=== PATIENT | female | born 1995 | race Two or more races ===

== ENCOUNTER 2024-08-30 05:41 | Inpatient (IN) | payer MEDICAID, OTHER ==
[~2024-08-30] VITALS: Ht 157.5 cm; Wt 71.4 kg
--- NOTE | 2024-08-30 06:45 | ED.PDOC ---
GI ASSESSMENT HPI Comments 29Y F with PMHx cholecystectomy presents to ED for chief complaint abd pain with nausea, vomiting, and diarrhea x4hrs. Abd pain is located at epigastric and RUQ region. Pt was seen by Adam 2 weeks ago and was dx with colitis. Pt was told she may have Crohn's disease. LMP was on 08/04/2024. No known allergies. Chief Complaint: Nausea/Vomiting Time Seen by MD: 06:24 Reviewed Notes: Medications, Allergies Allergies: Coded Allergies: NO KNOWN ALLERGIES (Unverified , 08/30/24) Information Source: Patient Mode of Arrival: Ambulatory Timing: Hours Duration: Since onset Quality: Sharp Vomitus: Watery Stool: Watery Severity: Moderate Recent: None Recent Hx of: None Pain Location: Epigastric, RUQ Modifying Factors: Nothing Associated sign and symptoms: Nausea, Vomiting, Diarrhea, Abdominal Pain Past Medical History PAST MEDICAL HISTORY: Denies Surgical History: Cholecystectomy ONLINE BANKING SPECIALIST History: No Pertinent ONLINE BANKING SPECIALIST History Family History Family History: Unknown Social History Smoker: Unknown Alcohol: Unknown Drugs: Unknown Lives In: Home Constitutional: denies: chills, diaphoresis, fatigue, fever, malaise, sweats, weakness, others EENTM: denies: blurred vision, double vision, ear bleeding, ear discharge, ear drainage, ear pain, ear ringing, eye pain, eye redness, hearing loss, mouth pain, mouth swelling, nasal discharge, nose bleeding, nose congestion, nose pain, photophobia, tearing, throat pain, throat swelling, voice changes, others Respiratory: denies: cough, hemoptysis, orthopnea, SOB at rest, shortness of breath, SOB with excertion, stridor, wheezing, others Cardiovascular: denies: chest pain, dizzy spells, diaphoresis, Dyspnea on exertion, edema, irregular heart beat, left arm pain, lightheadedness, palpitations, PND, syncope, others Gastrointestinal: reports: abdominal pain, diarrhea, nausea, vomiting; denies: abdomen distended, blood streaked bowels, constipated, dysphagia, difficulty swallowing, hematemesis, melena, poor appetite, poor fluid intake, rectal bl eeding, rectal pain, others Genitourinary: denies: abnormal vagina bleeding, burning, dyspareunia, dysuria, flank pain, frequency, hematuria, incontinence, pain, , vagina discharge, urgency, others Neurological: denies: dizziness, fainting, headache, left sided numbness, left sided weakness, numbness, paresthesia, pre-existing deficit, right sided numbness, right sided weakness, seizure, speech problems, tingling, tremors, weakness, others Musculoskeletal: denies: back pain, gout, joint pain, joint swelling, muscle pain, muscle stiffness, neck pain, others Integumetry: denies: bruises, change in color, change in hair/nails, dryness, laceration, lesions, lumps, rash, wounds, others Allergic/Immunocompromised: denies: Difficulty Healing, Frequent Infections, Hives, Itching, others Hematologic/Lymphatic: denies: anemia, blood clots, easy bleeding, easy bruising, swollen glands, others Endocrine: denies: excessive hunger, excessive sweating, excessive thirst, excessive urination, flushing, intolerance to cold, intolerance to heat, unexplained weight gain, unexplained weight loss, others Psychiatric: denies: anxiety, bipolar disorder, depression, hopeless, panic disorder, schizophrenia, sleepless, suicidal, others All Other Systems: Reviewed and Negative Physical Exam General Appearance: Moderate Distress HEENT: Normal ENT Inspection, Pharynx Normal, TMs Normal Neck: Full Range of Motion, Non-Tender, Normal, Normal Inspection Respiratory: Chest Non-Tender, Lungs Clear, No Accessory Muscle Use, No Respiratory Distress, Normal Breath Sounds Cardiovascular: No Edema, No JVD, No Murmur, No Gallop, Normal Peripheral Pulses, Regular Rate/Rhythm Breast Exam: Deferred Gastrointestinal: No Organomegaly, Non Tender, No Pulsatile Mass, Normal Bowel Sounds, Soft Genitalia: Deferred Pelvic: Deferred Rectal: Deferred Extremities: No calf tenderness, Normal capillary refill, Normal inspection, Normal range of motion, Non-tender, No pedal edema Musculoskeletal : Apperance: Normal Neurologic: Alert, fuse assembler II-XII nml as Tested, No Motor Deficits, Normal Affect, Normal Mood, No Sensory Deficits Cerebellar Function: Normal Reflexes: Normal Skin: Dry, Normal Color, Warm Lymphatic: No Adenopathy Was a procedure done? Was a procedure done?: No GI differential Dx Differential Diagnosis: Cholecystitis, Diverticular disease, Gastritis/PUD, Electrolyte Imbalance X-Ray, Labs, Meds, VS Vital Signs Date Time Temp Pulse Resp B/P (MAP) Pulse Ox O2 Delivery O2 Flow Rate FiO2 08/30/24 13:32 98.4 76 16 121/49 (73) 98 98.4 08/30/24 08:15 75 16 08/30/24 08:15 98.0 75 16 132/85 (101) 99 98.0 08/30/24 05:52 98.4 86 16 148/97 (114) 98 Lab Test 08/30/24 08:39 08/30/24 05:56 Range/Units White Blood Count 9.5 4.4-10.8 10^3/uL Red Blood Count 4.95 4.0-5.20 10^6/uL Hemoglobin 13.1 12.2-16.2 g/dL Hematocrit 39.6 36.0-46.0 % Mean Corpuscular Volume 80.0 80.0-100.0 fL Mean Corpuscular Hemoglobin 26.4 L 28.0-32.0 pg Mean Corpuscular Hemoglobin Concent 33.0 32.0-36.0 g/dL Red Cell Distribution Width 16.1 H 11.8-14.3 % Platelet Count 344 140-450 10^3/uL Mean Platelet Volume 8.5 6.9-10.8 fL Neutrophils (%) (Auto) 71.7 37.0-80.0 % Lymphocytes (%) (Auto) 22.2 10.0-50.0 % Monocytes (%) (Auto) 5.0 0.0-12.0 % Eosinophils (%) (Auto) 0.5 0.0-7.0 % Basophils (%) (Auto) 0.6 0.0-2.0 % Neutrophils # (Auto) 6.8 1.6-8.6 10 ^3/uL Lymphocytes # (Auto) 2.1 0.4-5.4 10 ^3/uL Monocytes # (Auto) 0.5 0-1.3 10 ^3/uL Eosinophils # (Auto) 0 0-0.8 10 ^3/uL Basophils # (Auto) 0.1 0-0.2 10 ^3/uL Nucleated Red Blood Cells 0.1 % Sodium Level 143 136-145 mmol/L Potassium Level 3.6 3.5-5.1 mmol/L Chloride Level 110 H 98-107 mmol/L Carbon Dioxide Level 24 20-31 mmol/L Anion Gap 9 5-15 Blood Urea Nitrogen 7 L 9-23 mg/dL Creatinine 0.83 0.550-1.02 mg/dL Glomerular Filtration Rate Calc 98 >90 mL/min BUN/Creatinine Ratio 8.4 L 10.0-20.0 Serum Glucose 96 74-106 mg/dL Calcium Level 9.8 8.7-10.4 mg/dL Total Bilirubin 0.4 0.2-1.0 mg/dL Aspartate Amino Transferase (AST) 13 13-40 U/L Alanine Aminotransferase (ALT) 13 7-40 U/L Alkaline Phosphatase 92 46-116 U/L Total Protein 7.5 5.7-8.2 g/dL Albumin 4.9 H 3.2-4.8 g/dL Lipase 39 12-53 U/L Urine Color Dark-brown Yellow Urine Clarity Ex.turbid Clear Urine pH 6.0 5.0-9.0 Urine Specific [place] 1.028 1.001-1.035 Urine Protein 1+ H Negative Urine Ketones Trace Negative Urine Blood Negative Negative /uL Urine Nitrite Negative Negative Urine Bilirubin Negative Negative Urine Urobilinogen Normal Negative mg/dL Urine Leukocyte Esterase Negative Negative /uL Urine RBC None seen 0 - 4 /hpf Urine WBC 199 0 - 5 /hpf Urine Squamous Epithelial Cells None seen <5 /hpf Urine Amorphous Crystals Few None Seen /hpf Urine Bacteria Few H None Seen /hpf Urine Mucus Few None Seen Urine Glucose Normal Normal mg/dL Urine Test Negative Negative [facility] [id number] [place] [address] Ph: [phone] DIAGNOSTIC IMAGING Diagnostic Imaging Report : [id number] Signed PATIENT: SUSIE HARRY ACCT: [id number] UNIT: [id number] : 1995 LOC: ER ROOM / BED: / AGE / SEX: 29 / F ADM STATUS: REG ER SERVICE 0833 ORDERING PHYSICIAN: JOYA ANTHONY MD PROCEDURE(s): ABPL - CT AB PEL WO CON-NO ORAL OR IV REASON: ABDOMINAL PAIN ORDER NUMBER(s): [id number], ACCESSION NUMBER(s): [id number] EXAM: CT Abdomen and Pelvis Without Intravenous Contrast CLINICAL INDICATION: ABDOMINAL PAIN TECHNIQUE: Axial computed tomography images of the abdomen and pelvis without intravenous contrast. This CT exam was performed using one or more of the following dose reduction techniques: automated exposure control, adjustment of the mA and/or kV according to patient size, and/or use of iterative reconstruction technique. RADIATION DOSE: CTDlvol= 8 mGy, DLP= 433.19 mGy-cm COMPARISON: None FINDINGS: LUNG BASES: Unremarkable. No mass. No consolidation. ABDOMEN: LIVER: Unremarkable. GALLBLADDER AND BILE DUCTS: Gallbladder is surgically absent. No ductal dilation. PANCREAS: Unremarkable. No ductal dilation. SPLEEN: 5.7 cm splenic cyst. ADRENALS: Unremarkable. No mass. KIDNEYS AND URETERS: Unremarkable. No stones within either kidney. No hydronephrosis. STOMACH AND BOWEL: Unremarkable. No obstruction. No mucosal thickening. PELVIS: APPENDIX: Appendix is not clearly visualized. No significant fat stranding in the right lower abdominal quadrant to suggest acute inflammation. BLADDER: Unremarkable. No stones. REPRODUCTIVE: Unremarkable as visualized. ABDOMEN and PELVIS: INTRAPERITONEAL SPACE: Unremarkable. No free air. No significant fluid collection. BONES/JOINTS: No acute fracture. No dislocation. SOFT TISSUES: Unremarkable. VASCULATURE: Unremarkable. No abdominal aortic aneurysm. LYMPH NODES: Unremarkable. No enlarged lymph nodes. OTHER FINDINGS: . . IMPRESSION: 1. 5.7 cm splenic cyst. 2. No obstructive uropathy. 3. Appendix is not clearly visualized. No significant fat stranding in the right lower abdominal quadrant to suggest acute inflammation. HS:Y ATED BY: MENA MEJIA MD DICTATED DATE/TIME: 08/30/24928 SIGNED BY: MENA MEJIA MD SIGNED DATE/TIME: 08/30/24928 CC: Time of 1ST Reevaluation: 06:54 Reevaluation 1ST: Unchanged Time of 2ND Reevaluation: 13:56 Reevaluation 2ND: Unchanged Patient Education/Counseling: Diagnosis, Treatment Family Education/Counseling: No Family Present Additional Information Tests ordered and results reviewed: CBC, CMP, lipase, UA, CT abd/pelvis WO contrast Independent historians include: None. Dr. Anthony interpreted each of the tests and agrees with the result. Results and treatment discussed with the pt and medical personnel. despite of treatment and an extended time in the ER, pt remains symptomatic and cannot keep oral intake. i will admit her for intractable nausea, abdominal pain Departure 1 Departure Time of Disposition: 13:57 Impression: Primary Impression: Intractable abdominal pain Additional Impression: Intractable nausea Disposition: ADMITTED INPATIENT Condition: Good Critical Care Note Critical Care Time?: No Stability Stability form required: No I personally scribed for JOYA ANTHONY MD ([facility]) on 08/30/24 at 06:45. Electronically submitted by Mayra Ayon ([facility]). I personally scribed for JOYA ANTHONY MD ([facility]) on 08/30/24 at 09:41. Electronically submitted by Mayra Ayon ([facility]). JOYA ANTHONY MD Aug 30, 2024 06:45
[2024-08-30 08:04] LABS: Urine Amorphous Crystal FEW /hpf (None Seen); Urine Bacteria FEW /hpf (None Seen); Urine Blood Negative /uL (Negative); Urine Clarity Ex.Turbid (Clear); Urine Color Dark-Brown (Yellow); Urine Mucus FEW (None Seen); Urine Protein, UAD 1+ (Negative); Urine Specific Gravity 1.028 (1.001-1.035); Urine Urobilinogen Normal (Negative); Urine WBC 199 /hpf (0 - 5)
--- NOTE | 2024-08-30 09:31 | DVH ---
EXAM: CT Abdomen and Pelvis Without Intravenous Contrast CLINICAL INDICATION: ABDOMINAL PAIN TECHNIQUE: Axial computed tomography images of the abdomen and pelvis without intravenous contrast. This CT exam was performed using one or more of the following dose reduction techniques: automated exposure control, adjustment of the mA and/or kV according to patient size, and/or use of iterative r econstruction technique. RADIATION DOSE: CTDlvol= 8 mGy, DLP= 433.19 mGy-cm COMPARISON: None FINDINGS: LUNG BASES: Unremarkable. No mass. No consolidation. ABDOMEN: LIVER: Unremarkable. GALLBLADDER AND BILE DUCTS: Gallbladder is surgically absent. No ductal dilation. PANCREAS: Unremarkable. No ductal dilation. SPLEEN: 5.7 cm splenic cyst. ADRENALS: Unremarkable. No mass. KIDNEYS AND URETERS: Unremarkable. No stones within either kidney. No hydronephrosis. STOMACH AND BOWEL: Unremarkable. No obstruction. No mucosal thickening. PELVIS: APPENDIX: Appendix is not clearly visualized. No significant fat stranding in the right lower abdomi nal quadrant to suggest acute inflammation. BLADDER: Unremarkable. No stones. REPRODUCTIVE: Unremarkable as visualized. ABDOMEN and PELVIS: INTRAPERITONEAL SPACE: Unremarkable. No free air. No significant fluid collection. BONES/JOINTS: No acute fracture. No dislocation. SOFT TISSUES: Unremarkable. VASCULATURE: Unremarkable. No abdominal aortic aneurysm. LYMPH NODES: Unremarkable. No enlarged lymph nodes. OTHER FINDINGS: . . IMPRESSION: 1. 5.7 cm splenic cyst. 2. No obstructive uropathy. 3. Appendix is not clearly visualized. No significant fat stranding in the right lower abdominal saurav drant to suggest acute inflammation. HS:Y
[2024-08-30 09:33] LABS: Eosinophils # (auto) 0 10 ^3/uL (0-0.8); Hemoglobin 13.1 g/dL (12.2-16.2); Monocytes # (auto) 0.5 10 ^3/uL (0-1.3); Neutrophils # (auto) 6.8 10 ^3/uL (1.6-8.6); Nucleated Red Blood Cells % 0.1 %; White Blood Cell 9.5 10^3/uL (4.4-10.8)
[2024-08-30 09:35] LABS: Basophils # (auto) 0.1 10 ^3/uL (0-0.2); Basophils % (auto) 0.6 % (0.0-2.0); Eosinophils % (auto) 0.5 % (0.0-7.0); Hematocrit 39.6 % (36.0-46.0); Lymphocytes # (auto) 2.1 10 ^3/uL (0.4-5.4); Lymphocytes % (auto) 22.2 % (10.0-50.0); Mean Corpuscular Hemoglobin 26.4 pg (28.0-32.0); Neutrophils % (auto) 71.7 % (37.0-80.0); Platelet Count (auto) 344 10^3/uL (140-450); Red Blood Cells 4.95 10^6/uL (4.0-5.20); Red Cell Distribution Width 16.1 % (11.8-14.3)
[2024-08-30 09:36] LABS: Alanine Aminotransferase 13 U/L (7-40); Albumin 4.9 g/dL (3.2-4.8); Alkaline Phosphatase 92 U/L (46-116); Anion Gap 9 (5-15); Aspartate Aminotransferase 13 U/L (13-40); BUN/Creatinine Ratio 8.4 (10.0-20.0); Blood Urea Nitrogen 7 mg/dL (9-23); Calcium 9.8 mg/dL (8.7-10.4); Carbon Dioxide 24 mmol/L (20-31); Chloride 110 mmol/L (98-107); Glucose 96 mg/dL (74-106); Potassium 3.6 mmol/L (3.5-5.1); Sodium 143 mmol/L (136-145)
[2024-08-30 09:37] LABS: Bilirubin, Total 0.4 mg/dL (0.2-1.0); Total Protein 7.5 g/dL (5.7-8.2)
[2024-08-30 11:26] LABS: Lipase 39 U/L (12-53)
[2024-08-30] MEDS: SODIUM CHLORIDE 0.9% 1,000 ML IV ONE (14:09)
[2024-08-30] MEDS: ONDANSETRON HCL 4 MG/2 ML VIAL IV ONE (14:24)
[2024-08-30 14:55] VITALS: PULSE 76; RESP 16; O2SAT 98
[2024-08-30] MEDS: SODIUM CHLORIDE 0.9% 1,000 ML IV SCH (16:00)
[2024-08-30] MEDS ORDERED: LORazepam 0.5 MG TAB PO PRN (16:00)
[2024-08-30] MEDS ORDERED: TEMAZEPAM 15 MG CAP PO PRN (16:00)
[2024-08-30] MEDS: cefTRIAXone 1GM/50ML D5W 50 ML IV SCH (16:00)
[2024-08-30] MEDS ORDERED: MAALOX PLUS or MAALOX 30 ML PO PRN (16:00)
[2024-08-30] MEDS ORDERED: DOCUSATE SOD 100 MG CAP PO PRN (16:00)
[2024-08-30] MEDS ORDERED: ACETAMINOPHEN 325 MG TAB PO PRN (16:00)
--- NOTE | 2024-08-30 16:36 | DVHHP2 ---
History of Present Illness Reason for Visit: abdominal pain History of Present Illness 29 yo patient stated failed treatment patient was having pain and nausea and vomiting for days was seen in the ed and was stated that she had diverticulitis and a gi infection was treated with cipro and told to follow up if worse patient states continued symptoms and worsening pain seen in our ed recommended for admmisson for suspected failed outpatient treatment Review of Systems Constitutional: Yes: Fever, Weakness; No: Chills, Sweats, Malaise, Other Eyes: No: Pain, Vision change, Conjunctivae inflammation, Eyelid inflammation, Other, Redness ENT: No: Ear pain, Ear discharge, Nose pain, Nose discharge, Nose congestion, Mouth pain, Mouth swelling, Throat pain, Throat swelling, Other Respiratory: No: Cough, Dry, Shortness of breath, SOB with excertion, Wheezing, Hemoptysis, Pleuritic Pain, Sputum, Wheezing, Other Cardiovascular: No: Chest Pain, Palpitations, Orthopnea, Paroxysmal Noc. Dyspnea, Edema, Lt Headedness, Other Gastrointestinal: Nausea, Vomiting, Abdominal Pain; No: Diarrhea, Constipation, Melena, Hematochezia, Other Genitourinary: No Dysuria, No Frequency, No Incontinence, No Hematuria, No Retention, No Other Musculoskeletal: No: other, neck pain, shoulder pain, arm pain, back pain, hand pain, leg pain, foot pain Skin: No: Rash, Lesions, Jaundice, Bruising, Other Neurological: No: Weakness, Numbness, Incoordination, Change in speech, Confusion, Seizures, Other Allergies: Coded Allergies: NO KNOWN ALLERGIES (Unverified , 08/30/24) Medications Current Medications Medications Dose Ordered Sig/Shailesh Route Start Time Stop Time Status Last Admin Dose Admin Ceftriaxone Sodium 50 ml @ 100 mls/hr DAILY IV 08/30/24 16:00 UNV Sodium Chloride 1,000 ml @ 60 mls/hr [id number] IV 08/30/24 16:00 UNV Lorazepam 0.5 mg Q6HP PRN PO 08/30/24 16:00 UNV Al Hydrox/Mg Hydrox/Simethicone 30 ml Q6HP PRN PO 08/30/24 16:00 UNV Docusate Sodium 100 mg BIDPRN PRN PO 08/30/24 16:00 UNV Acetaminophen 650 mg Q6HP PRN PO 08/30/24 16:00 UNV Temazepam 15 mg QHSP PRN PO 08/30/24 16:00 UNV Acetaminophen/ Hydrocodone Bitart 1 tab Q4HP PRN PO 08/30/24 16:00 UNV Ondansetron HCl 4 mg Q4HP PRN IV 08/30/24 16:00 UNV Morphine Sulfate 2 mg Q4HPRN PRN IV 08/30/24 16:00 UNV Exam Vital Signs Vital Signs Date Time Temp Pulse Resp B/P (MAP) Pulse Ox O2 Delivery O2 Flow Rate FiO2 08/30/24 16:07 98.9 70 16 127/95 (106) 98 98.9 08/30/24 14:55 Room Air* 0 21 General Appearance: Alert, Oriented X3, mild distress, moderate distress HEENT: Atraumatic, PERRLA Respiratory: Clear to auscultation, Normal air movement Cardiovascular: Regular rate, Normal S1, Normal S2 Abdominal: Normal bowel sounds, Soft, No tenderness Extremities: No clubbing, No cyanosis Skin: No rashes, No breakdown Neuro: Normal gait, Normal speech Psych/Mental Status: Mental status NL, Mood NL Labs/Xrays Labs Test 08/30/24 08:39 08/30/24 05:56 Range/Units White Blood Count 9.5 4.4-10.8 10^3/uL Red Blood Count 4.95 4.0-5.20 10^6/uL Hemoglobin 13.1 12.2-16.2 g/dL Hematocrit 39.6 36.0-46.0 % Mean Corpuscular Volume 80.0 80.0-100.0 fL Mean Corpuscular Hemoglobin 26.4 L 28.0-32.0 pg Mean Corpuscular Hemoglobin Concent 33.0 32.0-36.0 g/dL Red Cell Distribution Width 16.1 H 11.8-14.3 % Platelet Count 344 140-450 10^3/uL Mean Platelet Volume 8.5 6.9-10.8 fL Neutrophils (%) (Auto) 71.7 37.0-80.0 % Lymphocytes (%) (Auto) 22.2 10.0-50.0 % Monocytes (%) (Auto) 5.0 0.0-12.0 % Eosinophils (%) (Auto) 0.5 0.0-7.0 % Basophils (%) (Auto) 0.6 0.0-2.0 % Neutrophils # (Auto) 6.8 1.6-8.6 10 ^3/uL Lymphocytes # (Auto) 2.1 0.4-5.4 10 ^3/uL Monocytes # (Auto) 0.5 0-1.3 10 ^3/uL Eosinophils # (Auto) 0 0-0.8 10 ^3/uL Basophils # (Auto) 0.1 0-0.2 10 ^3/uL Nucleated Red Blood Cells 0.1 % Sodium Level 143 136-145 mmol/L Potassium Level 3.6 3.5-5.1 mmol/L Chloride Level 110 H 98-107 mmol/L Carbon Dioxide Level 24 20-31 mmol/L Anion Gap 9 5-15 Blood Urea Nitrogen 7 L 9-23 mg/dL Creatinine 0.83 0.550-1.02 mg/dL Glomerular Filtration Rate Calc 98 >90 mL/min BUN/Creatinine Ratio 8.4 L 10.0-20.0 Serum Glucose 96 74-106 mg/dL Calcium Level 9.8 8.7-10.4 mg/dL Total Bilirubin 0.4 0.2-1.0 mg/dL Aspartate Amino Transferase (AST) 13 13-40 U/L Alanine Aminotransferase (ALT) 13 7-40 U/L Alkaline Phosphatase 92 46-116 U/L Total Protein 7.5 5.7-8.2 g/dL Albumin 4.9 H 3.2-4.8 g/dL Lipase 39 12-53 U/L Urine Color Dark-brown Yellow Urine Clarity Ex.turbid Clear Urine pH 6.0 5.0-9.0 Urine Specific [place] 1.028 1.001-1.035 Urine Protein 1+ H Negative Urine Ketones Trace Negative Urine Blood Negative Negative /uL Urine Nitrite Negative Negative Urine Bilirubin Negative Negative Urine Urobilinogen Normal Negative mg/dL Urine Leukocyte Esterase Negative Negative /uL Urine RBC None seen 0 - 4 /hpf Urine WBC 199 0 - 5 /hpf Urine Squamous Epithelial Cells None seen <5 /hpf Urine Amorphous Crystals Few None Seen /hpf Urine Bacteria Few H None Seen /hpf Urine Mucus Few None Seen Urine Glucose Normal Normal mg/dL Urine Test Negative Negative Assessment/Plan Assessment/Plan Admit Med/Surg Abdominal Pain Suspected Pain due to Acute diverticulitis with failed outpatient treatment UTI also present IV hydration Symptom management IV abx prn pain meds Plan discussed with: Patient My Orders Orders - ELAINE PILLAI MD Procedure Category Date Status Time Ceftriaxone 1gm/50ml PHA 08/30/24 In Process D5w (Rocephin) 16:00 Drug Screen LAB 08/30/24 In Process 15:48 Admit ADMIT 08/30/24 Transmitted 15:48 Code Status CODE 08/30/24 Transmitted 15:48 Vital Signs ELI 08/30/24 In Process 15:48 Review Orders With [facility] 08/30/24 In Process Adm.Md 15:48 Regular Diet DIET 08/30/24 Transmitted Dinner Sodium Chloride 0.9% PHA 08/30/24 In Process 16:00 Lorazepam Tablet PHA 08/30/24 In Process (Ativan Tablet) 16:00 Alum & Mag PHA 08/30/24 In Process Hydrox-Simethicone 16:00 Docusate Sodium PHA 08/30/24 In Process Capsule (Colace 16:00 Acetaminophen Tablet PHA 08/30/24 In Process (Tylenol Tablet) 16:00 Temazepam (Restoril) PHA 08/30/24 In Process 16:00 Notify Of Changes ELI 08/30/24 In Process From Base 15:48 Advance Directive ELI 08/30/24 In Process 15:48 Basic Metabolic Panel LAB 08/31/24 Verified 04:00 Complete Blood Count LAB 08/31/24 Verified 04:00 Urine Bacterial KRISSY 08/30/24 In Process Culture 15:48 Patient Condition ORDERS 08/30/24 Transmitted 15:48 Allergies ELI 08/30/24 In Process 15:48 Hydrocodone-Acet PHA 08/30/24 In Process 5/325mg Tab ([place] 16:00 Ondansetron Hcl PHA 08/30/24 In Process (Zofran) 16:00 Morphine Sulfate PHA 08/30/24 In Process Injection 16:00 Notify Of Changes ELI 08/30/24 In Process From Base 15:48 Oxygen By Nasal RT 08/30/24 Transmitted Cannula 15:48 * Surgical Consult CONS 08/30/24 Transmitted Metronidazole PHA 08/30/24 In Process 500mg/100ml (Flagyl 16:30 Problem List: (1) Colitis (2) Intractable abdominal pain (3) Intractable nausea Date of Service: Aug 30, 2024 Billing Provider: ELAINE PILLAI MD Common Visit Codes: 81079-[id number] INP/OBS CARE (HIGH) ELAINE PILLAI MD Aug 30, 2024 16:36
[2024-08-30 16:39] LABS: Amphetamine Screen, Urine Neg (NEGATIVE); Barbiturate Scree,Urine Neg (NEGATIVE); Benzodiazephine Screen, Urine Neg (NEGATIVE); Cocaine Screen, Urine Neg (NEGATIVE); Opiate Scree,Urine Neg (NEGATIVE)
[2024-08-30 16:40] LABS: Cannabinoid Screen, Urine Pos (NEGATIVE); Phencyclidine Screen, Urine Neg (NEGATIVE)
[2024-08-30 17:00] VITALS: BP 139/89; PULSE 87; RESP 17; TEMP 98.6; O2SAT 97
[2024-08-30 17:54] VITALS: PULSE 87; RESP 18; O2SAT 97
[2024-08-30 17:56] VITALS: BP 139/89; PULSE 87; RESP 17; TEMP 98.6; O2SAT 97
[2024-08-30] MEDS: ONDANSETRON HCL 4 MG/2 ML VIAL IV PRN (19:40)
[2024-08-30] MEDS: MORPHINE SULFATE INJ 2 MG/ml SYRG IV PRN (19:40)
[2024-08-30 20:50] VITALS: BP 110/56; PULSE 75; RESP 18; TEMP 98.5; O2SAT 96
[2024-08-30] MEDS: metroNIDAZOLE 500MG/100ML 100 ML IV SCH (20:58)
[2024-08-31] VITALS (7 sets, daily range): BP systolic 100–126; BP diastolic 48–88; PULSE 55–68; RESP 18–20; TEMP 98–99.3; O2SAT 96–99
[2024-08-31] MEDS: HYDROcodone-ACET 5/325MG TAB PO PRN (00:42)
[2024-08-31 05:37] LABS: Basophils # (auto) 0 10 ^3/uL (0-0.2); Eosinophils # (auto) 0.1 10 ^3/uL (0-0.8); Hemoglobin 10.7 g/dL (12.2-16.2); Lymphocytes # (auto) 1.6 10 ^3/uL (0.4-5.4); Mean Corpuscular Hemoglobin 26.3 pg (28.0-32.0); Monocytes # (auto) 0.4 10 ^3/uL (0-1.3); Neutrophils # (auto) 3.2 10 ^3/uL (1.6-8.6)
[2024-08-31 05:43] LABS: Basophils % (auto) 0.5 % (0.0-2.0); Eosinophils % (auto) 1.2 % (0.0-7.0); Lymphocytes % (auto) 30.3 % (10.0-50.0); Mean Corpuscular Hgb Conc. 32.5 g/dL (32.0-36.0); Nucleated Red Blood Cells % 0.1 %; Platelet Count (auto) 227 10^3/uL (140-450); Red Blood Cells 4.08 10^6/uL (4.0-5.20); Red Cell Distribution Width 16.4 % (11.8-14.3); White Blood Cell 5.3 10^3/uL (4.4-10.8)
[2024-08-31 05:48] LABS: Anion Gap 7 (5-15); Carbon Dioxide 25 mmol/L (20-31); Chloride 109 mmol/L (98-107); Potassium 3.1 mmol/L (3.5-5.1); Sodium 141 mmol/L (136-145)
[2024-08-31 05:54] LABS: BUN/Creatinine Ratio 10.1 (10.0-20.0); Blood Urea Nitrogen 8 mg/dL (9-23); Glucose 86 mg/dL (74-106)
[2024-08-31 08:38] LABS: Erythrocyte Sedimentation Rate 12 mm/hr (0-20)
--- NOTE | 2024-08-31 10:10 | DVHPN2 ---
Progress Note Date Seen: Aug 31, 2024 Medical Necessity Reason Pt with a Central, PICC or Fol: No Objective vital signs Vital Sign Date Time Temp Pulse Resp B/P (MAP) Pulse Ox O2 Delivery O2 Flow Rate FiO2 08/31/24 09:00 98.6 55 18 100/60 (73) 99 98.6 08/30/24 17:54 Room Air* 0 21 Total Intake and Output 08/30/24 08/30/24 08/31/24 15:00 23:00 07:00 Intake Total 1000 ml 390 ml 640 ml Balance 1000 ml 390 ml 640 ml medications Current Medications Medications Dose Ordered Sig/Shailesh Route Start Time Stop Time Status Last Admin Dose Admin Ceftriaxone Sodium 50 ml @ 100 mls/hr DAILY IV 08/30/24 16:00 08/31/24 09:30 100 MLS/HR Sodium Chloride 1,000 ml @ 60 mls/hr [id number] IV 08/30/24 16:00 08/31/24 03:53 60 MLS/HR Lorazepam 0.5 mg Q6HP PRN PO 08/30/24 16:00 Al Hydrox/Mg Hydrox/Simethicone 30 ml Q6HP PRN PO 08/30/24 16:00 Docusate Sodium 100 mg BIDPRN PRN PO 08/30/24 16:00 Acetaminophen 650 mg Q6HP PRN PO 08/30/24 16:00 Temazepam 15 mg QHSP PRN PO 08/30/24 16:00 Acetaminophen/ Hydrocodone Bitart 1 tab Q4HP PRN PO 08/30/24 16:00 08/31/24 00:42 1 TAB Ondansetron HCl 4 mg Q4HP PRN IV 08/30/24 16:00 08/31/24 09:30 4 MG Morphine Sulfate 2 mg Q4HPRN PRN IV 08/30/24 16:00 08/31/24 05:19 2 MG Metronidazole 100 ml @ 100 mls/hr Q8HR IV 08/30/24 16:30 08/31/24 05:08 100 MLS/HR laboratory and microbiology Laboratory Tests 08/31/24 05:04 Test 08/31/24 05:04 Range/Units Serum Glucose 86 74-106 mg/dL Problem List/Assessment/Plan Problem List/Assessment/Plan 08/31/24 ABDOMINAL PAIN IN LEFT UPPERM AND RIGHT LOWER QUADRANTS, CT SHOWS A SPLENIC CYST. LARGE CYSTS ARE BEST TREATED WITH MARSUPIALIZATION OR PARTIAL SPLENECTOMY, WILL DO CT WITH CONTRAST, Plan discussed with: Patient FILIBERTO CHRISTIAN MD Aug 31, 2024 10:10
[2024-08-31] MEDS ORDERED: GASTROGRAFIN 30 ML SOL ONE (10:51)
[2024-08-31] MEDS ORDERED: IOHEXOL 300 MG/ML 100ML BOTTLE IJ ONE (10:52)
[2024-08-31] MEDS: POTASSIUM CHLORIDE 60 MEQ, LIDOCAINE 1% (LOCAL ANESTH.) 6 ML in SODIUM CHL 0.9% 500 ML IV ONE (11:28)
[2024-08-31 12:10] LABS: INR 1.13 (0.9-1.15); Partial Thromboplastin Time 30.8 SEC (24.5-34.5); Prothrombin Time 11.9 sec (9.3-11.8)
--- NOTE | 2024-08-31 14:21 | DVHPNRES ---
Progress Note Date Seen: Aug 31, 2024 Resident Creating Document: EDWARD BALDERRAMA RESIDENT Has the PT tested + for MRSA If YES, has PT been informed?: No Medical Necessity Reason Pt with a Central, PICC or Fol: No Subjective Review of Systems A [age] female with no past medical history came to the ED due to diarrhea for 1 day patient has history of chronic diarrhea 2 weeks ago was seen in other facility for the same condition patient is being having chronic episodes of diarrhea since 2020 patient reported that she had a colonoscopy but she is not following a GI does not recall if they took biopsy Patient states today diarrhea with blood Objective vital signs Vital Sign Date Time Temp Pulse Resp B/P (MAP) Pulse Ox O2 Delivery O2 Flow Rate FiO2 08/31/24 12:36 98.3 60 18 117/71 (86) 98 98.3 08/31/24 08:00 Room Air* 0 21 Total Intake and Output 08/30/24 08/30/24 08/31/24 15:00 23:00 07:00 Intake Total 1000 ml 390 ml 640 ml Balance 1000 ml 390 ml 640 ml medications Current Medications Medications Dose Ordered Sig/Shailesh Route Start Time Stop Time Status Last Admin Dose Admin Ceftriaxone Sodium 50 ml @ 100 mls/hr DAILY IV 08/30/24 16:00 08/31/24 09:30 100 MLS/HR Sodium Chloride 1,000 ml @ 60 mls/hr [id number] IV 08/30/24 16:00 08/31/24 03:53 60 MLS/HR Lorazepam 0.5 mg Q6HP PRN PO 08/30/24 16:00 Al Hydrox/Mg Hydrox/Simethicone 30 ml Q6HP PRN PO 08/30/24 16:00 Docusate Sodium 100 mg BIDPRN PRN PO 08/30/24 16:00 Acetaminophen 650 mg Q6HP PRN PO 08/30/24 16:00 Temazepam 15 mg QHSP PRN PO 08/30/24 16:00 Acetaminophen/ Hydrocodone Bitart 1 tab Q4HP PRN PO 08/30/24 16:00 08/31/24 00:42 1 TAB Ondansetron HCl 4 mg Q4HP PRN IV 08/30/24 16:00 08/31/24 09:30 4 MG Morphine Sulfate 2 mg Q4HPRN PRN IV 08/30/24 16:00 08/31/24 10:41 2 MG Metronidazole 100 ml @ 100 mls/hr Q8HR IV 08/30/24 16:30 08/31/24 05:08 100 MLS/HR Examination GEN: Healthy appearing, well-developed, NAD. PSYCH: Good Judgment. AOx3. Normal memory, mood, and affect. HEENT -Head: normocephalic atraumatic, no facial trauma, neck is supple -Eyes: PERRL, EOMI. No discharge or redness; -Ears: External ears are normal. Normal TMs. -Nose: Normal nares. -Mouth and throat: MMM. Normal gums, mucosa, palate,. Good dentition. NECK: Supple, with no masses. CV: RRR, no m/r/g. LUNGS: respiratory effort normal, speaks in full sentences, no tripod position, no accessory muscle use. Lungs clear to auscultation without rhonchi, wheezes, rales ABD: Soft, ND/NT. No evidence of fluid wave. No pulsatile masses on exam, rebound tenderness, Cooley sign or pain over Mcburney's point. : N/A SKIN: Warm, well perfused. No skin rashes or abnormal lesions. MSK: No deformities or signs of scoliosis. Normal gait. EXT: No clubbing, cyanosis, or edema. NEURO: Ambulating with no limitations. Normal muscle strength and tone. No focal deficits. laboratory and microbiology Laboratory Tests 08/31/24 05:04 Test 08/31/24 05:04 Range/Units Serum Glucose 86 74-106 mg/dL Microbiology Date/Time Source Procedure Growth Status 08/30/24 05:56 Voided Urine Urine Culture - Preliminary Resulted Problem List/Assessment/Plan Problem List/Assessment/Plan # acute gastroenteritis # splenic cyst # possible chronic diarrhea possible IBS # rule out inflammatory bowel disease #Hypokalemia ctscan: 1. 5.7 cm splenic cyst. 2. No obstructive uropathy. 3. Appendix is not clearly visualized. No significant fat stranding in the right lower abdominal quadrant to suggest acute inflammation. Keep fluids 60 cc/h Clear liquid diet K IV Keep antibiotics due to bloody diarrhea stool culture and occult blood Surgery ordered a CT scan with contrast due to splenic cyst Pt is advice to f/u GI outpatient for further studies on chronic diarrhea Case discussed with Dr Magdaleno Time spent on care 23 min Plan discussed with: Patient, Other (rn) My Orders My Orders Orders - EDWARD BALDERRAMA Procedure Category Date Status Time Stool Occult Blood LAB 08/31/24 In Process 08:29 Clear Liq Diet DIET 08/31/24 Transmitted Lunch Date of Service: Aug 31, 2024 Billing Provider: MARILYN MAGDALENO MD Common Visit Codes: [id number] INP/OBS CARE(HIGH) EDWARD BALDERRAMA RESIDENT Aug 31, 2024 14:21 MARILYN MAGDALENO MD Aug 31, 2024 21:21
--- NOTE | 2024-08-31 14:48 | DVH ---
Exam: CT CT ABD PELVIS W CON-ORAL IV History: SPLENIC CYST Comparison Study: CT CT AB PEL WO CON-NO ORAL OR IV on DOS: 08/30/24 TECHNIQUE: A digital video conference specialist image was obtained. During the uneventful, intravenous and oral administra tion of contrast material, multislice data acquisition was obtained through the abdomen and pelvis. T he data set was subsequently reconstructed into axial images. Images reviewed on a wrist examination is an examination of axial and multiplanar reformations using a variety of window levels and settings . RADIATION DOSE: DLP 497.88 mGy.cm; CTDI vol 8.8 mGy. Findings: Lungs: The lung bases are clear. Heart: The visualized heart is unremarkable. No cardiomegaly or pericardial effusion. Liver: Unremarkable. Gallbladder: Cholecystectomy. Spleen: 5.7 x 5.9 cm simple cystic lesion in the spleen. Pancreas: Unremarkable Adrenals: Unremarkable Kidneys: Unremarkable GI tract: Unremarkable. No obstruction. : Unremarkable. Fluid in the endometrium and cervix. Vasculature: Unremarkable Lymphadenopathy: Absent Peritoneum: No ascites Musculoskeletal: Unremarkable Soft tissues: Unremarkable Impression: 1. No acute abdominopelvic abnormalities. 2. 5.9 x 5.7 cm simple splenic cyst. 3. Fluid in the endometrium and cervic. Correlate with phase of menstrual cycle. 4. No evidence of bowl obstruction.
[2024-09-01 00:53] VITALS: BP_SYST 102; BP_SYST 121; BP_DIAS 50; BP_DIAS 83; PULSE 100; PULSE 67; RESP 19; RESP 20; TEMP 98; TEMP 98.9; O2SAT 97; O2SAT 99
[2024-09-01 07:11] LABS: Anion Gap 8 (5-15); Carbon Dioxide 23 mmol/L (20-31); Chloride 110 mmol/L (98-107); Potassium 3.7 mmol/L (3.5-5.1); Sodium 141 mmol/L (136-145)
[2024-09-01 07:12] LABS: Calcium 9.1 mg/dL (8.7-10.4)
[2024-09-01 07:17] LABS: Glucose 78 mg/dL (74-106)
[2024-09-01 07:21] LABS: BUN/Creatinine Ratio 6.7 (10.0-20.0); Blood Urea Nitrogen < 5 mg/dL (9-23)
[2024-09-01 08:00] VITALS: PULSE 60; RESP 18
[2024-09-01 09:00] VITALS: BP 102/60; PULSE 60; RESP 16; TEMP 98.2; O2SAT 98
--- NOTE | 2024-09-01 10:17 | DVHPN2 ---
Progress Note Date Seen: Sep 01, 2024 Has the PT tested + for MRSA If YES, has PT been informed?: No Medical Necessity Reason Pt with a Central, PICC or Fol: No Objective vital signs Vital Sign Date Time Temp Pulse Resp B/P (MAP) Pulse Ox O2 Delivery O2 Flow Rate FiO2 09/01/24 09:00 98.2 60 16 102/60 (74) 98 98.2 09/01/24 08:00 Room Air* 0 21 Total Intake and Output 08/31/24 08/31/24 09/01/24 14:59 22:59 06:59 Intake Total 50 ml 1500 ml 775 ml Output Total 2 ml Balance 50 ml 1500 ml 773 ml medications Current Medications Medications Dose Ordered Sig/Shailesh Route Start Time Stop Time Status Last Admin Dose Admin Ceftriaxone Sodium 50 ml @ 100 mls/hr DAILY IV 08/30/24 16:00 09/01/24 09:25 100 MLS/HR Sodium Chloride 1,000 ml @ 60 mls/hr [id number] IV 08/30/24 16:00 09/01/24 07:13 60 MLS/HR Lorazepam 0.5 mg Q6HP PRN PO 08/30/24 16:00 Al Hydrox/Mg Hydrox/Simethicone 30 ml Q6HP PRN PO 08/30/24 16:00 Docusate Sodium 100 mg BIDPRN PRN PO 08/30/24 16:00 Acetaminophen 650 mg Q6HP PRN PO 08/30/24 16:00 Temazepam 15 mg QHSP PRN PO 08/30/24 16:00 Acetaminophen/ Hydrocodone Bitart 1 tab Q4HP PRN PO 08/30/24 16:00 09/01/24 06:33 1 TAB Ondansetron HCl 4 mg Q4HP PRN IV 08/30/24 16:00 09/01/24 06:33 4 MG Morphine Sulfate 2 mg Q4HPRN PRN IV 08/30/24 16:00 08/31/24 23:41 2 MG Metronidazole 100 ml @ 100 mls/hr Q8HR IV 08/30/24 16:30 09/01/24 05:20 100 MLS/HR laboratory and microbiology Laboratory Tests 09/01/24 05:55 08/31/24 05:04 Test 09/01/24 05:55 Range/Units Serum Glucose 78 74-106 mg/dL Problem List/Assessment/Plan Problem List/Assessment/Plan 08/31/24 ABDOMINAL PAIN IN LEFT UPPERM AND RIGHT LOWER QUADRANTS, CT SHOWS A SPLENIC CYST. LARGE CYSTS ARE BEST TREATED WITH MARSUPIALIZATION OR PARTIAL SPLENECTOMY, WILL DO CT WITH CONTRAST, 09/01/24 after thorough explanation to patient of her diagnosis ad treatment options, she decided she would like to be transferred to a facility where she can have the splenic cyst treated laparoscopically. Plan discussed with: Patient, Other FILIBERTO CHRISTIAN MD Sep 01, 2024 10:17
[2024-09-01 13:15] VITALS: BP 118/70; PULSE 72; RESP 16; TEMP 98.3; O2SAT 98
[2024-09-01] MEDS ORDERED: HYOSCYAMINE SULF 0.125 MG ODT TAB PO PRN (14:15)
[2024-09-01] MEDS ORDERED: METOCLOPRAMIDE HCL 10 MG TAB PO PRN (14:15)
--- NOTE | 2024-09-01 14:57 | DVHDSRES ---
Discharge Summary Date of Admission Resident Creating Document: EDWARD BALDERRAMA RESIDENT Aug 30, 2024 at 15:48 Date of Discharge: Sep 01, 2024 Admitting Diagnosis acute gastroenteritis Labs/Diagnostic Data: Laboratory Results Test 09/01/24 05:55 08/31/24 13:41 08/31/24 11:37 08/31/24 05:04 Sodium Level 141 mmol/L (136-145) Potassium Level 3.7 mmol/L (3.5-5.1) Chloride Level 110 mmol/L (98-107) Carbon Dioxide Level 23 mmol/L (20-31) Anion Gap 8 (5-15) Blood Urea Nitrogen < 5 mg/dL (9-23) Creatinine 0.75 mg/dL (0.550-1.02) Glomerular Filtration Rate Calc 111 mL/min (>90) BUN/Creatinine Ratio 6.7 (10.0-20.0) Serum Glucose 78 mg/dL (74-106) Calcium Level 9.1 mg/dL (8.7-10.4) Stool Occult Blood Negative (Negative) Stool Occult Blood Sample #3 (Negative) Prothrombin Time 11.9 sec (9.3-11.8) Prothrombin Time INR 1.13 (0.9-1.15) Activated Partial Thromboplast Time 30.8 SEC (24.5-34.5) White Blood Count 5.3 10^3/uL (4.4-10.8) Red Blood Count 4.08 10^6/uL (4.0-5.20) Hemoglobin 10.7 g/dL (12.2-16.2) Hematocrit 33.0 % (36.0-46.0) Mean Corpuscular Volume 81.0 fL (80.0-100.0) Mean Corpuscular Hemoglobin 26.3 pg (28.0-32.0) Mean Corpuscular Hemoglobin Concent 32.5 g/dL (32.0-36.0) Red Cell Distribution Width 16.4 % (11.8-14.3) Platelet Count 227 10^3/uL (140-450) Mean Platelet Volume 8.3 fL (6.9-10.8) Neutrophils (%) (Auto) 61.0 % (37.0-80.0) Lymphocytes (%) (Auto) 30.3 % (10.0-50.0) Monocytes (%) (Auto) 7.0 % (0.0-12.0) Eosinophils (%) (Auto) 1.2 % (0.0-7.0) Basophils (%) (Auto) 0.5 % (0.0-2.0) Neutrophils # (Auto) 3.2 10 ^3/uL (1.6-8.6) Lymphocytes # (Auto) 1.6 10 ^3/uL (0.4-5.4) Monocytes # (Auto) 0.4 10 ^3/uL (0-1.3) Eosinophils # (Auto) 0.1 10 ^3/uL (0-0.8) Basophils # (Auto) 0 10 ^3/uL (0-0.2) Nucleated Red Blood Cells 0.1 % Erythrocyte Sedimentation Rate 12 mm/hr (0-20) C-Reactive Protein High Sensitivity 0.43 mg/dL (<1.0) Test 08/30/24 08:39 08/30/24 05:56 Total Bilirubin 0.4 mg/dL (0.2-1.0) Aspartate Amino Transferase (AST) 13 U/L (13-40) Alanine Aminotransferase (ALT) 13 U/L (7-40) Alkaline Phosphatase 92 U/L (46-116) Total Protein 7.5 g/dL (5.7-8.2) Albumin 4.9 g/dL (3.2-4.8) Lipase 39 U/L (12-53) Urine Color Dark-brown (Yellow) Urine Clarity Ex.turbid (Clear) Urine pH 6.0 (5.0-9.0) Urine Specific [place] 1.028 (1.001-1.035) Urine Protein 1+ (Negative) Urine Ketones Trace (Negative) Urine Blood Negative /uL (Negative) Urine Nitrite Negative (Negative) Urine Bilirubin Negative (Negative) Urine Urobilinogen Normal mg/dL (Negative) Urine Leukocyte Esterase Negative /uL (Negative) Urine RBC None seen /hpf (0 - 4) Urine WBC 199 /hpf (0 - 5) Urine Squamous Epithelial Cells None seen /hpf (<5) Urine Amorphous Crystals Few /hpf (None Seen) Urine Bacteria Few /hpf (None Seen) Urine Mucus Few (None Seen) Urine Glucose Normal mg/dL (Normal) Urine Test Negative (Negative) Urine Opiates Screen Neg (NEGATIVE) Urine Fentanyl Screen Neg (NEGATIVE) Urine Barbiturates Screen Neg (NEGATIVE) Urine Phencyclidine Screen Neg (NEGATIVE) Urine Amphetamines Screen Neg (NEGATIVE) Urine Benzodiazepines Screen Neg (NEGATIVE) Urine Cocaine Screen Neg (NEGATIVE) Urine Cannabinoids Screen Pos (NEGATIVE) Other Laboratory Tests 09/01/24 05:55 08/31/24 05:04 Brief Hx & Hospital Course: A 29y female with no past medical history came to the ED due to epigastric pain, diarrhea, nausea and vomiting for 1 day. Patient has history of chronic diarrhea and 2 weeks ago, she was seen in other facility for the same condition. patient is being having chronic episodes of diarrhea since 2020 patient reported that she had a colonoscopy but she is not following a GI does not recall if they took biopsy. Pt also stated epigastric pain since december of 2023 CT scan showed splenic cyst 5.7 cm, surgery was consulted and they considered that patient will need surgery management for possible marsupialization but the patient decided laparoscopic management. Due to non emergent surgery, patient was advised to consult in high level of care: [facility] for possible procedure Case was also commented with GI who considered f/u as outpatient for possible EGD. FOB came neg UA and urine culture showed UTI, E coli and e faecalis pt was treated with ceftriaxone IV inpatient and levoquin PO was sent for outpatient managment GI coktail was sent as well for GI symptoms. GEN: Healthy appearing, well-developed, NAD. PSYCH: Good Judgment. AOx3. Normal memory, mood, and affect. HEENT -Head: normocephalic atraumatic, no facial trauma, neck is supple -Eyes: PERRL, EOMI. No discharge or redness; -Ears: External ears are normal. Normal TMs. -Nose: Normal nares. -Mouth and throat: MMM. Normal gums, mucosa, palate,. Good dentition. NECK: Supple, with no masses. CV: RRR, no m/r/g. LUNGS: respiratory effort normal, speaks in full sentences, no tripod position, no accessory muscle use. Lungs clear to auscultation without rhonchi, wheezes, rales ABD: Soft, ND/NT. No evidence of fluid wave. No pulsatile masses on exam, rebound tenderness, Cooley sign or pain over Mcburney's point. : N/A SKIN: Warm, well perfused. No skin rashes or abnormal lesions. MSK: No deformities or signs of scoliosis. Normal gait. EXT: No clubbing, cyanosis, or edema. NEURO: Ambulating with no limitations. Normal muscle strength and tone. No focal deficits. Case discussed with Dr Magdaleno Time spent on care 23 min Consults/Reason for consult surgery due to splenic cyst Operations or Procedures Comparison Study: CT CT AB PEL WO CON-NO ORAL OR IV on DOS: 08/30/24 TECHNIQUE: A digital cis coordinator image was obtained. During the uneventful, intravenous and oral administration of contrast material, multislice data acquisition was obtained through the abdomen and pelvis. The data set was subsequently reconstructed into axial images. Images reviewed on a wrist examination is an examination of axial and multiplanar reformations using a variety of window levels and settings. RADIATION DOSE: DLP 497.88 mGy.cm; CTDI vol 8.8 mGy. Findings: Lungs: The lung bases are clear. Heart: The visualized heart is unremarkable. No cardiomegaly or pericardial effusion. Liver: Unremarkable. Gallbladder: Cholecystectomy. Spleen: 5.7 x 5.9 cm simple cystic lesion in the spleen. Pancreas: Unremarkable Adrenals: Unremarkable Kidneys: Unremarkable GI tract: Unremarkable. No obstruction. : Unremarkable. Fluid in the endometrium and cervix. Vasculature: Unremarkable Lymphadenopathy: Absent Peritoneum: No ascites Musculoskeletal: Unremarkable Soft tissues: Unremarkable Impression: 1. No acute abdominopelvic abnormalities. 2. 5.9 x 5.7 cm simple splenic cyst. 3. Fluid in the endometrium and cervic. Correlate with phase of menstrual cycle. 4. No evidence of bowl obstruction. Condition at Discharge: Stable Final Diagnosis/Problems List # acute gastroenteritis # splenic cyst # possible chronic diarrhea possible IBS # rule out inflammatory bowel disease #Hypokalemia UTI ruled out GI bleeding Discharge Disposition: Home Discharge Instruct/Medications Diet: See Comment Diet comment: liquid diet, advance slow Activity: No Restrictions, As Tolerated Follow Up/Referral: f/u dc clinic, f/u with GI for further studies due to probably functional GI disorder, f/u laparoscopic surgery for further treatment in splenic cyst 5.7 cm Medications: see prescription Discharge Statement: "Patient was advised to return to the ER or call 911 if any headaches, dizziness, shortness of breath, chest pain, abdominal pain, bleeding, fevers, or worsening of medical condition. Patient was counseled about treatment plan, medications, possible side effects, patientverbalized understanding. All questions were answered to the best of my ability. This discharge took greater then 30 minutes in planning, reviewing documentation, counseling the patient, and discussing with other team members." ASSESSMENT ASSESSMENT Assessment Epigastric pain UTI Splenic cyst Date of Service: Sep 01, 2024 Billing Provider: MARILYN MAGDALENO MD Common Visit Codes: [id number] DISCH DAY >30min Coding Comment Comment Attending Attestation I saw and evaluated the patient. I reviewed the residents note and agree with findings and plan as documented in the residents note except as documented below. Discussed with surgeon regarding splenic space and transferred to higher level of care according to surgeon not an emergent surgery and can be followed up as outpatient for elective laparoscopic procedure EDWARD BALDERRAMA RESIDENT Sep 01, 2024 14:57 MARILYN MAGDALENO MD Sep 03, 2024 08:22
[2024-09-01] MEDS ORDERED: LEVO500T91 PO (15:50)
[2024-09-01] MEDS ORDERED: GICOCKTAIL PO (15:50)
[2024-09-01 15:58] VITALS: BP 110/69; PULSE 77; RESP 18; TEMP 98.5; O2SAT 98
[2024-09-01 17:40] VITALS: BP 110/69; PULSE 77; RESP 16; TEMP 98.5; O2SAT 96
[2024-09-01] MEDS: ACETAMINOPHEN 325 MG TAB PO SCH (18:00)
[2024-09-02] MEDS ORDERED: levoFLOXacin 500 MG TAB PO SCH (10:00)
== END 2024-09-01 19:00 | disposition home or self-care (01) | DRG 254 ==
LOC: ER 05:41 → OVERFLOW 15:48 → EAST 08-31 03:36
PROVIDERS: ADMIT Student in an Organized Health Care Education/Training Program; ATTEND Student in an Organized Health Care Education/Training Program
DX: K58.9 Irritable bowel syndrome, unspecified (principal); D73.4 Cyst of spleen; A08.4 Viral intestinal infection, unspecified; N39.0 Urinary tract infection, site not specified; K57.32 Diverticulitis of large intestine without perforation or abscess without bleeding; E87.6 Hypokalemia; Z90.49 Acquired absence of other specified parts of digestive tract
CPT/HCPCS: 36415; 74176; 74177; 80048; 80053; 80307; 81001; 81025; 82270; 83690; 85025; 85610; 85652; 85730; 86141; 87045; 87086; 87088; 87186; 87427; 96361; 96374; G0378; J2003; J2405; J3490